=== PATIENT | female | born 1940 | race Caucasian/White ===

== ENCOUNTER → 2017-02-14 | Outpatient (CLI) | payer MEDICARE ==
[~2017-02-14] MED LIST: CELEXA 20MG TAB20 MG PO; COLACE 100MG C100 MG PO; COREG 3.125M3.125 MG PO; CRESTOR 10 MG T10 MG PO; HYDROCHLOROTHIA25 MG PO; NORCO 10-325 T1 EACH PO; NORVASC 5 MG TAB5 MG PO; PRILOSEC OTC20 MG PO; PROVENTIL HFA 61 INH INH; SYNTHROID75 MCG PO; TYLENOL 325MG325 MG PO
== END ==
LOC: KOH-I 10:21
DX: J18.9 Pneumonia, unspecified organism (principal); R91.8 Other nonspecific abnormal finding of lung field
CPT/HCPCS: 71020

== ENCOUNTER 2020-12-24 04:15 | Emergency (ER) | payer MEDICARE ==
[~2020-12-24 04:15] MED LIST changes: +ALBUTEROL2.5 MG/3 M INH; +ASPIRIN CHEWABL81 MG PO; +BREO ELLIPTA 21 EACH INH; -CELEXA 20MG TAB20 MG PO; +CELEXA40 MG PO; +ELIQUIS 5 MG TAB5 MG PO; +ISOSORBIDE MONO30 MG PO; +MULTAQ 400 MG400 MG PO; +PRAVACHOL40 MG PO; +SYNTHROID100 MCG PO; -SYNTHROID75 MCG PO
[2020-12-24 05:02] LABS: RED BLOOD COUNT 1.66 M/UL (4.00-5.10); WHITE BLOOD COUNT 12.4 K/UL (4.5-11.0)
== END 2020-12-24 09:50 | disposition short-term general hospital (02) ==
LOC: ER1 04:15
PROVIDERS: Emergency Medicine
DX: K92.2 Gastrointestinal hemorrhage, unspecified (principal); R19.7 Diarrhea, unspecified; I10 Essential (primary) hypertension; I48.91 Unspecified atrial fibrillation; Z95.1 Presence of aortocoronary bypass graft; Z20.822 Contact with and (suspected) exposure to COVID-19
CPT/HCPCS: 36430; 71045; 80053; 82550; 82553; 84484; 85025; 85610; 85730; 86850; 86900; 86901; 86920; 87040; 96374; 96375; 99285; J2270; J2405; J7050; P9016; U0002

== ENCOUNTER → 2021-01-18 | Outpatient (CLI) | payer MEDICARE ==
[2021-01-18 13:53] LABS: HEMOGLOBIN 9.9 gm/dl (12.3-15.3); RED BLOOD COUNT 3.42 M/UL (4.00-5.10); WHITE BLOOD COUNT 5.8 K/UL (4.5-11.0)
== END ==
LOC: LAB 12:09
PROVIDERS: Internal Medicine Nephrology
DX: D50.0 Iron deficiency anemia secondary to blood loss (chronic) (principal); N18.30 Chronic kidney disease, stage 3 unspecified
CPT/HCPCS: 36415; 80053; 82570; 82728; 83540; 83550; 84156; 85027

== ENCOUNTER → 2021-02-03 | Outpatient (CLI) | payer MEDICARE | LOC: HEART 5 09:02 | DX: R06.02 Shortness of breath (principal); R09.02 Hypoxemia; Z79.899 Other long term (current) drug therapy | CPT/HCPCS: 94060; 94729 ==

== ENCOUNTER → 2021-04-19 | Outpatient (CLI) | payer MEDICARE ==
[2021-04-19 16:39] LABS: HEMOGLOBIN 8.9 gm/dl (12.3-15.3); RED BLOOD COUNT 2.97 M/UL (4.00-5.10); WHITE BLOOD COUNT 6.4 K/UL (4.5-11.0)
== END ==
LOC: LAB 14:52
PROVIDERS: Internal Medicine Nephrology
DX: N18.30 Chronic kidney disease, stage 3 unspecified (principal); D63.1 Anemia in chronic kidney disease
CPT/HCPCS: 36415; 80053; 82570; 84156; 85027

== ENCOUNTER 2021-04-26 19:01 | Emergency (ER) | payer MEDICARE | END 2021-04-26 21:20 | disposition home or self-care (01) | LOC: ER1 19:01 | DX: S01.112A Laceration without foreign body of left eyelid and periocular area, initial encounter (principal); S60.212A Contusion of left wrist, initial encounter; S50.02XA Contusion of left elbow, initial encounter; J44.9 Chronic obstructive pulmonary disease, unspecified; I10 Essential (primary) hypertension; I25.10 Atherosclerotic heart disease of native coronary artery without angina pectoris; Z95.1 Presence of aortocoronary bypass graft; Z23 Encounter for immunization; W01.10XA Fall on same level from slipping, tripping and stumbling with subsequent striking against unspecified object, initial encounter | CPT/HCPCS: 70450; 73080; 73110; 90471; 90715; 99284 ==

== ENCOUNTER → 2021-06-05 | Outpatient (CLI) | payer MEDICARE ==
[~2021-06-05] MED LIST changes: -ASPIRIN CHEWABL81 MG PO; +ASPIRIN EC81 MG PO; +CALCIUM + VITA1 EACH PO; -COREG 3.125M3.125 MG PO; +COREG6.25 MG PO; +IRON325 M1 PO; +LEXAPRO20 MG PO; +NITROSTAT 0.40.4 MG SL; +PACERONE200 MG PO; -PRAVACHOL40 MG PO; +PRAVASTATIN SOD40 MG PO; +PROTONIX 40 MG40 M1 PO; +VITAMIN C500 M4 PO
[2021-06-05 19:20] LABS: HEMOGLOBIN 5.2 gm/dl (12.3-15.3)
== END ==
LOC: OPSV 12-14 11:00 → EROP 14:51
PROVIDERS: Family Medicine
DX: D64.9 Anemia, unspecified (principal)
CPT/HCPCS: 36415; 36430; 85014; 85018; 86850; 86900; 86901; 86920; P9016

== ENCOUNTER → 2021-06-10 | Outpatient (CLI) | payer MEDICARE ==
[2021-06-10 17:22] LABS: HEMOGLOBIN 5.9 gm/dl (12.3-15.3)
== END ==
LOC: LAB 15:18
PROVIDERS: Family Medicine
DX: D64.9 Anemia, unspecified (principal)
CPT/HCPCS: 36415; 85014; 85018; 86850; 86900; 86901; 86920; P9016

== ENCOUNTER → 2021-06-11 | Outpatient (CLI) | payer MEDICARE ==
[2021-06-11 11:01] LABS: HEMOGLOBIN 7.1 gm/dl (12.3-15.3); RED BLOOD COUNT 2.22 M/UL (4.00-5.10)
== END ==
LOC: OPSV 07:00
PROVIDERS: Internal Medicine
DX: D64.9 Anemia, unspecified (principal)
CPT/HCPCS: 36415; 36430; 85027

== ENCOUNTER → 2021-06-12 | Outpatient (CLI) | payer MEDICARE ==
[2021-06-12 22:54] LABS: WHITE BLOOD COUNT 7.5 K/UL (4.5-11.0)
[2021-06-12 22:58] LABS: RED BLOOD COUNT 2.92 M/UL (4.00-5.10)
== END ==
LOC: EROP 10:59
PROVIDERS: Internal Medicine
DX: D64.9 Anemia, unspecified (principal)
CPT/HCPCS: 36430; 85027; 86850; 86900; 86901; 86920; P9016

== ENCOUNTER 2021-07-17 14:17 | Emergency (ER) | payer MEDICARE ==
[~2021-07-17] VITALS: Ht 162.6 cm; Wt 69.9 kg
[~2021-07-17 14:17] MED LIST changes: -ALBUTEROL2.5 MG/3 M INH; -ASPIRIN EC81 MG PO; -CALCIUM + VITA1 EACH PO; -COREG6.25 MG PO; -IRON325 M1 PO; -LEXAPRO20 MG PO; -NITROSTAT 0.40.4 MG SL; -PACERONE200 MG PO; -PRAVASTATIN SOD40 MG PO; -PROTONIX 40 MG40 M1 PO; -SYNTHROID100 MCG PO; -VITAMIN C500 M4 PO
[2021-07-17 15:06] LABS: RED BLOOD COUNT 1.62 M/UL (4.00-5.10); WHITE BLOOD COUNT 8.6 K/UL (4.5-11.0)
[2021-07-17 16:01] LABS: HEMOGLOBIN 5.1 gm/dl (12.3-15.3)
[2021-07-18 04:14] LABS: WHITE BLOOD COUNT 8.3 K/UL (4.5-11.0)
[2021-07-18 04:23] LABS: HEMOGLOBIN 6.5 gm/dl (12.3-15.3); RED BLOOD COUNT 2.19 M/UL (4.00-5.10)
[2021-07-18 18:39] LABS: HEMOGLOBIN 7.4 gm/dl (12.3-15.3)
[2021-07-19] MEDS ORDERED: COREG6.25 MG PO (12:29)
[2021-07-19] MEDS ORDERED: SYNTHROID100 MCG PO (12:31)
[2021-07-19] MEDS ORDERED: LEXAPRO20 MG PO (14:30)
[2021-07-19] MEDS ORDERED: PACERONE200 MG PO (14:31)
[2021-07-19] MEDS ORDERED: NITROSTAT 0.40.4 MG SL (14:32)
[2021-07-19] MEDS ORDERED: PROTONIX 40 MG40 M1 PO (14:32)
[2021-07-19] MEDS ORDERED: CALCIUM + VITA1 EACH PO (14:34)
[2021-07-19] MEDS ORDERED: IRON325 M1 PO (14:34)
[2021-07-19] MEDS ORDERED: VITAMIN C500 M4 PO (14:35)
[2021-07-19 15:32] LABS: HEMOGLOBIN 6.2 gm/dl (12.3-15.3)
[2021-07-19] MEDS ORDERED: ASPIRIN EC81 MG PO (18:50)
[2021-07-19] MEDS ORDERED: PRAVASTATIN SOD40 MG PO (18:51)
[2021-07-19] MEDS ORDERED: ALBUTEROL2.5 MG/3 M INH (18:52)
[2021-07-20 04:44] LABS: HEMOGLOBIN 7.6 gm/dl (12.3-15.3)
[2021-07-20 15:41] LABS: HEMOGLOBIN 15.5 gm/dl (12.3-15.3); RED BLOOD COUNT 5.04 M/UL (4.00-5.10); WHITE BLOOD COUNT 16.8 K/UL (4.5-11.0)
[2021-07-20 16:21] LABS: HEMOGLOBIN 7.4 gm/dl (12.3-15.3); RED BLOOD COUNT 2.39 M/UL (4.00-5.10); WHITE BLOOD COUNT 6.5 K/UL (4.5-11.0)
[2021-07-21 09:10] LABS: RED BLOOD COUNT 2.28 M/UL (4.00-5.10); WHITE BLOOD COUNT 5.5 K/UL (4.5-11.0)
[2021-07-21 09:30] LABS: HEMOGLOBIN 6.8 gm/dl (12.3-15.3)
[2021-07-21 09:52] LABS: BUN/CREATININE RATIO 22 (0-10)
[2021-07-22 03:21] LABS: HEMOGLOBIN 9.1 gm/dl (12.3-15.3); RED BLOOD COUNT 2.94 M/UL (4.00-5.10); WHITE BLOOD COUNT 7.3 K/UL (4.5-11.0)
[2021-07-22 08:39] LABS: HEMOGLOBIN 9.4 gm/dl (12.3-15.3); RED BLOOD COUNT 3.03 M/UL (4.00-5.10); WHITE BLOOD COUNT 7.6 K/UL (4.5-11.0)
[2021-07-22 09:05] LABS: BUN/CREATININE RATIO 17 (0-10)
[2021-07-22 12:35] LABS: HEMOGLOBIN 10.4 gm/dl (12.3-15.3); WHITE BLOOD COUNT 7.8 K/UL (4.5-11.0)
[2021-07-22 12:48] LABS: RED BLOOD COUNT 3.4 M/UL (4.00-5.10)
[2021-07-23 11:26] LABS: HEMOGLOBIN 10.7 gm/dl (12.3-15.3); RED BLOOD COUNT 3.47 M/UL (4.00-5.10); WHITE BLOOD COUNT 7.7 K/UL (4.5-11.0)
[2021-07-24 06:37] LABS: HEMOGLOBIN 10.3 gm/dl (12.3-15.3); RED BLOOD COUNT 3.37 M/UL (4.00-5.10); WHITE BLOOD COUNT 6.9 K/UL (4.5-11.0)
== END 2021-07-25 00:40 | disposition short-term general hospital (02) ==
LOC: ER1 14:17
PROVIDERS: Emergency Medicine; Family Medicine; Physician Assistant Medical; Student in an Organized Health Care Education/Training Program
DX: K92.2 Gastrointestinal hemorrhage, unspecified (principal); D64.9 Anemia, unspecified; I48.91 Unspecified atrial fibrillation; I25.10 Atherosclerotic heart disease of native coronary artery without angina pectoris; Z95.1 Presence of aortocoronary bypass graft; Z79.01 Long term (current) use of anticoagulants; Z20.822 Contact with and (suspected) exposure to COVID-19; K21.9 Gastro-esophageal reflux disease without esophagitis
CPT/HCPCS: 36430; 71045; 80048; 80053; 82550; 82553; 83874; 84484; 85014; 85018; 85025; 85027; 85610; 85730; 86850; 86900; 86901; 86920; 94640; 94664; 94760; 96374; 96375; 96376; 99285; C9113; J2060; P9016; Q0177; U0002

== ENCOUNTER 2021-07-27 17:24 | Emergency (ER) | payer MEDICARE ==
[~2021-07-27 17:24] MED LIST changes: +ALBUTEROL2.5 MG/3 M INH; +ASPIRIN EC81 MG PO; +CALCIUM + VITA1 EACH PO; +COREG6.25 MG PO; +IRON325 M1 PO; +LEXAPRO20 MG PO; +NITROSTAT 0.40.4 MG SL; +PACERONE200 MG PO; +PRAVASTATIN SOD40 MG PO; +PROTONIX 40 MG40 M1 PO; +SYNTHROID100 MCG PO; +VITAMIN C500 M4 PO
[2021-07-27 19:27] LABS: RED BLOOD COUNT 3.89 M/UL (4.00-5.10); WHITE BLOOD COUNT 12.5 K/UL (4.5-11.0)
== END 2021-07-27 22:12 | disposition left against medical advice (07) ==
LOC: ER1 17:24
PROVIDERS: Physician Assistant Medical
DX: R10.84 Generalized abdominal pain (principal); E78.5 Hyperlipidemia, unspecified; I48.91 Unspecified atrial fibrillation; K21.9 Gastro-esophageal reflux disease without esophagitis; I10 Essential (primary) hypertension; Z79.01 Long term (current) use of anticoagulants
CPT/HCPCS: 80053; 83605; 85025; 85610; 99284

== ENCOUNTER → 2021-08-20 | Outpatient (CLI) | payer MEDICARE | LOC: RAD 12:37 | DX: N39.0 Urinary tract infection, site not specified (principal); M46.1 Sacroiliitis, not elsewhere classified; M54.16 Radiculopathy, lumbar region; M43.17 Spondylolisthesis, lumbosacral region; S32.019A Unspecified fracture of first lumbar vertebra, initial encounter for closed fracture; M51.36 Other intervertebral disc degeneration, lumbar region | CPT/HCPCS: 72110; 87077; 87086; 87186 ==

== ENCOUNTER → 2021-08-30 | Outpatient (CLI) | payer MEDICARE ==
[2021-08-30 13:58] LABS: RED BLOOD COUNT 2.92 M/UL (4.00-5.10); WHITE BLOOD COUNT 7.6 K/UL (4.5-11.0)
== END ==
LOC: LAB 13:29
PROVIDERS: Family Medicine
DX: M51.16 Intervertebral disc disorders with radiculopathy, lumbar region (principal); M46.1 Sacroiliitis, not elsewhere classified; D64.9 Anemia, unspecified
CPT/HCPCS: 36415; 72110; 85025

== ENCOUNTER → 2021-09-29 | Outpatient (CLI) | payer MEDICARE | LOC: KOH-I 10:00 | DX: M48.56XA Collapsed vertebra, not elsewhere classified, lumbar region, initial encounter for fracture (principal); M51.36 Other intervertebral disc degeneration, lumbar region; M48.061 Spinal stenosis, lumbar region without neurogenic claudication | CPT/HCPCS: 72148 ==

== ENCOUNTER → 2022-02-16 | Outpatient (CLI) | payer MEDICARE | LOC: HEART 5 09:48 | DX: R06.02 Shortness of breath (principal); R00.1 Bradycardia, unspecified; Z79.899 Other long term (current) drug therapy | CPT/HCPCS: 94060; 94729 ==

== ENCOUNTER → 2022-02-22 | Outpatient (CLI) | payer MEDICARE | LOC: HEART 5 14:29 | DX: I48.0 Paroxysmal atrial fibrillation (principal); R00.1 Bradycardia, unspecified ==